=== PATIENT | female | born 1950 | race Caucasian/White ===

== ENCOUNTER 2017-02-28 16:56 | Inpatient (IN) | payer OTHER, MEDICARE ==
[~2017-02-28] VITALS: Ht 162.6 cm; Wt 63.2 kg
[2017-02-28] MEDS ORDERED: LEXA1TAB2 PO (17:11)
[2017-02-28] MEDS ORDERED: AMLO10TA2 PO (17:11)
[2017-02-28] MEDS ORDERED: ATOR1TAB21 PO (17:11)
[2017-02-28] MEDS ORDERED: MORPHINE 4 MG/ML 1ML SYRINGE As Ordered ONE (17:24)
[2017-02-28] MEDS ORDERED: MORPHINE 4 MG/ML 1ML SYRINGE IV ONE (17:30)
[2017-02-28] MEDS: NS 1,000 ML IV SCH (18:00)
[2017-02-28 18:10] LABS: BASO % 0.4 % (0.0-1.0); EOS # 0.2 K/mm3 (0.0-0.50); EOS % 2.3 % (0.0-3.0); LARGE UNSTAINED CELL # 0.2 K/mm3 (0.0-0.4); LARGE UNSTAINED CELL % 2.3 % (0.0-4.0); LYMPH # 2.1 K/mm3 (1.5-4.5); LYMPH % 31.8 % (24.0-44.0); MEAN CORPUSCULAR HEMOGLOBIN 30.9 pg (27.0-33.0); MEAN CORPUSCULAR VOLUME 90.9 fl (80.0-96.0); MONO # 0.3 K/mm3 (0.0-0.8); NEUTROPHILS # 3.8 K/mm3 (1.8-7.7); NEUTROPHILS % 58.4 % (36.0-66.0); PLATELET COUNT, AUTOMATED 193 k/mm3 (150-450); RED CELL DISTRIBUTION WIDTH 12.4 % (11.5-14.5); WHITE BLOOD COUNT 6.5 K/mm3 (4.0-10.0)
[2017-02-28 18:33] LABS: ANION GAP 9 MEQ/L (8-16); BLOOD UREA NITROGEN 15 MG/DL (7-18); CARBON DIOXIDE LEVEL 24 MEQ/L (21-32); CHLORIDE LEVEL 110 MEQ/L (98-107); CREATININE FOR GFR 0.74 MG/DL (0.55-1.02); GLOMERULAR FILTRATION RATE > 60.0 (>45); GLUCOSE, FASTING 105 MG/DL (80-110); POTASSIUM SERUM 3.7 MEQ/L (3.5-5.1); SODIUM LEVEL 143 MEQ/L (136-145)
[2017-02-28 18:43] LABS: INR 0.96
[2017-02-28] MEDS ORDERED: DIGOXIN INJ 0.5 MG/2 ML AMP (J1160) IV ONE (18:45)
[2017-02-28] MEDS ORDERED: ACET1TAB17 PO (18:48)
[2017-02-28] MEDS ORDERED: METOPROLOL 5 MG/5 ML VIAL IV SCH (19:00)
[2017-02-28] MEDS ORDERED: NS 1,000 ML IV ONE (19:45)
[2017-02-28] MEDS ORDERED: diltiaZEM 125 MG in NS 100 ML IV SCH (20:00)
--- NOTE | 2017-02-28 20:33 | CR.PDOC ---
[facility] Consultation Consultation DATE OF CONSULTATION: Feb 28, 2017 at 16:56 REFERRING PROVIDER: Hospitalist service ATTENDING PHYSICIAN: Dr. Lazaro Beckford- Orthopedic surgery REASON FOR CONSULTATION/CHIEF COMPLAINT: Left hip fracture. HISTORY OF PRESENT ILLNESS: Patient is a 66 yo female community ambulator with no assistive device who sustained a fall from 5 feet off a ladder when helping her prune a tree when she sustained a fall directly onto her left hip. Patient denies any antecedent chest pain, shortness of breath, palpitations, or other symptoms prior to her fall. In the ER, patient went into A-fib with RVR but currently is asymptomatic. Denies history of arrhythmia. No other complaints. Denies numbness, tingling, or burning to LLE. ALLERGIES: Please see below. HOME MEDICATIONS: Please see below. PAST MEDICAL HISTORY: 1. Hypertension. 2. Hyperlipidemia. 3. Anxiety PAST SURGICAL HISTORY: 1. tonsillectomy FAMILY HISTORY: non-contributory SOCIAL HISTORY: Marital status and/or living arrangements: , lived with in [place]. 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 CARDIOVASCULAR: + a fib in ER per HPI. No chest pain or palpitations. RESPIRATORY: NO cough, wheeze, or shortness of breath. GENITOURINARY: no frequency, urgency, or burning with urination. MUSCULOSKELETAL: L hip pain as above. No other extremity pain from fall. GASTROINTESTINAL: No nausea, vomiting, diarrhea. NEUROLOGICAL: No numbness, tingling, or burning sensations. PSYCHIATRIC: + anxiety history as above. PHYSICAL EXAMINATION: VITAL SIGNS: Please see below. GENERAL APPEARANCE: Well nourished female, no acute distress. HEENT: Normocephalic, atraumatic, normal dentition. RESPIRATORY: Non labored breathing. CARDIOVASCULAR: 2+ DP, PT pulses. Irregular rhythm as per HPI. EXTREMITIES: L hip with No open wounds or abrasions. Diffusely tender about left hip. No tenderness about knee, ankle, or foot. Able to flex/extend all toes LLE. Complete tertiary exam demonstrates full active BUE ROM, No cervical spine tenderness, No pain with R hip logroll. NEUROLOGICAL: Sensation and motor intact in BLE femoral, tibial, sural, saphenous, SPN, DPN distributions. LABORATORY DATA: Please see below. Rads: Plain radiographs of the left hip and pelvis demonstrate a minimally displaced L intertrochanteric femur fx ASSESSMENT: 66 y/o female with a L hip intertrochanteric femur fracture PLAN: 1. I discussed with the patient the risks, benefits, indications, and alternatives of operative versus nonoperative treatment and recommend closed versus open reduction and cephalomedullary nail fixation. Patient was counseled that given that she lives in [place] I will be her operating surgeon but she will likely have follow up arranged closer to home. If unable to follow up close to home, follow up with the [facility] will be arranged. Patient expressed understanding and informed consent was obtained for L hip CMN fixation. 2. Plan for surgery tomorrow AM pending medical optimization/risk stratification given new finding of A fib with RVR on hospital presentation. 3. NPO after midnight 4. Lovenox for DVT prophylaxis while in house 5. Full length femur films pending 6. Ancef 2G IV OCTOR Vital Signs/I&O Vital Signs Date Time Temp Pulse Resp B/P (MAP) Pulse Ox O2 Delivery O2 Flow Rate FiO2 02/28/17 20:10 106 97 02/28/17 19:55 116/87 (97) 02/28/17 18:06 18 02/28/17 18:00 Room Air 02/28/17 17:00 97.7 Laboratory Data Labs 24H Laboratory Tests 2 02/28/17 17:49: White Blood Count 6.5, Red Blood Count 4.15, Hemoglobin 12.8, Hematocrit 37.7, Mean Corpuscular Volume 90.9, Mean Corpuscular Hemoglobin 30.9, Mean Corpuscular Hemoglobin Concent 34.0, Red Cell Distribution Width 12.4, Platelet Count 193, Neutrophils (%) (Auto) 58.4, Lymphocytes (%) (Auto) 31.8, Monocytes ( %) (Auto) 5.0, Eosinophils (%) (Auto) 2.3, Basophils (%) (Auto) 0.4, Neutrophils # (Auto) 3.8, Lymphocytes # (Auto) 2.1, Monocytes # (Auto) 0.3, Eosinophils # (Auto) 0.2, Basophils # (Auto) 0.0, Large Unclassified Cells % 2.3 , Large Unclassified Cells # 0.2, Prothrombin Time 12.9, Prothromb Time International Ratio 0.96, Activated Partial Thromboplast Time 28.2, Anion Gap 9 , Glomerular Filtration Rate > 60.0, Blood Urea Nitrogen 15, Creatinine 0.74, Sodium Level 143, Potassium Level 3.7, Chloride Level 110H, Carbon Dioxide Level 24, Calcium Level 8.0L, Total Creatine Kinase 122, Creatine Kinase MB 1.8 , Creatine Kinase MB Relative Index 1.47, Troponin I 0.05, Thyroid Stimulating Hormone (TSH) 2.450 CBC/BMP Laboratory Tests 02/28/17 17:49 Red Blood Count 4.15, Mean Corpuscular Volume 90.9, Mean Corpuscular Hemoglobin 30.9, Mean Corpuscular Hemoglobin Concent 34.0, Red Cell Distribution Width 12.4 , Neutrophils (%) (Auto) 58.4, Lymphocytes (%) (Auto) 31.8, Monocytes (%) (Auto ) 5.0, Eosinophils (%) (Auto) 2.3, Basophils (%) (Auto) 0.4, Neutrophils # (Auto ) 3.8, Lymphocytes # (Auto) 2.1, Monocytes # (Auto) 0.3, Eosinophils # (Auto) 0.2, Basophils # (Auto) 0.0, Calcium Level 8.0 L, Total Creatine Kinase 122 Allergies Coded Allergies: Lisinopril (Unverified Adverse Reaction, Unknown, cough, 02/28/17) Home Medications Scheduled Amlodipine Besylate (Amlodipine Besylate) 10 Mg Tab, 10 MG PO DAILY, (Reported) Atorvastatin Calcium (Atorvastatin Calcium) 20 Mg Tab, 20 MG PO QHS, (Reported) Escitalopram Oxalate (Lexapro) 20 Mg Tab, 20 MG PO DAILY, (Reported) Scheduled PRN Acetaminophen (Acetaminophen) 325 Mg Tab, 650 MG PO Q6H PRN for PAIN, (Reported) FEI BECKFORD MD Feb 28, 2017 20:33
--- NOTE | 2017-02-28 21:07 | HPE ---
DATE OF ADMISSION: 02/28/2017 PRIMARY CARE PHYSICIAN: Dr. Aracelis Jerez, [place], [place] CHIEF COMPLAINT: Fall. HISTORY OF PRESENT ILLNESS: This is a 66-year-old female with a history of hypertension, hypercholesterolemia, anxiety who presents to the emergency room after a fall at home, sustaining a left hip fracture. Patient was on top of a ladder holding onto a branch when the son was cutting on the other side. She lost her balance and fell on her left side, unable to ambulate due to severe pain. X-rays in the emergency room (ER) showed left intertrochanteric fracture. Hospitalist service was called to admit. Of note, patient's heart rate on telemetry was found to be in atrial fibrillation with a ventricular rate of 143. She was given intravenous (IV) Cardizem bolus and placed on a Cardizem drip. Patient has otherwise been in her usual state of health. Denies any chest pain, pressure, tightness, shortness of breath, palpitations, lightheadedness, or syncope prior to the episode. Patient has been afebrile. No nausea, vomiting, abdominal pain, diarrhea, constipation, bright red blood per rectum, melena, or black, tarry stools. She has had previous history of palpitations in the past, which was evaluated by her tab cutter in [place]. Recent stress test was in 2014. According to the patient, previous EKGs showed no arrhythmias, with no prior episodes of near syncope or syncopal episodes from palpitations. Patient is usually very active, 15 minutes on a treadmill, and goes to the gym at least 3-4 times/week, and has had no issues with palpitations, lightheadedness, near syncope, or arrhythmias as outpatient.. PAST MEDICAL HISTORY: 1. Hypertension. 2. Hypercholesterolemia. 3. Anxiety. PAST SURGICAL HISTORY: None. ALLERGIES: LISINOPRIL, causing chronic dry cough. HOME MEDICATIONS: - acetaminophen 650 by mouth every 6 as needed for pain - amlodipine 10 mg daily - atorvastatin 20 mg at bedtime - Lexapro 20 mg daily SOCIAL HISTORY: Retired. Worked for the [employer]. Denies any current cigarette use. Previously smoked but quit 30 years ago. Occasional wine twice a week. Lives with her and son at home. FAMILY HISTORY: Mother alive, age 88, with hypertension and hypercholesterolemia. Father , age 84, with brain bleed, diabetes, hypertension. REVIEW OF SYSTEMS: Per history of present illness (HPI), a 12-point system otherwise negative. PHYSICAL EXAMINATION: Temperature 97.7, pulse 126, respiratory rate 18, blood pressure is 128/60, 193% on room air. GENERAL: Patient is awake, alert, oriented times three, answering questions appropriately. No facial asymmetry, icterus, jaundice. Pupils are equally round and reactive to light and accommodation. Extraocular muscles are intact. Normocephalic, atraumatic. Dry mucous membranes. Able to speak in full sentences. No thyromegaly, cervical lymphadenopathy, or jugular venous distention. LUNGS: Clear to auscultation. No wheezes, rales, or rhonchi. HEART: S1, S2, irregularly irregular. ABDOMEN: Soft, nontender, nondistended. Positive bowel sounds. EXTREMITIES: Left hip rotated. Unable to complete full exam due to severe pain. No pitting edema, cyanosis, or clubbing. Distal pulses: Dorsalis pedis, posterior tibialis are 2+. SKIN: Warm, dry. [place] in color. White count 6.5, hemoglobin 12, hematocrit 37, platelet count 193. Sodium 143, potassium 3.7, chloride 110, bicarbonate 24, BUN 15, creatinine 0.74 , glucose 105. Total CK 122, MB fraction 18, troponin 0.05. TSH of 2.45. Chest x-ray: No active disease. Hip x-ray: Intertrochanteric fracture of the proximal left femur. ASSESSMENT AND PLAN: This is a 66-year-old female with a history of hypertension , hypercholesterolemia, anxiety, history of palpitations, follows with a tab cutter in [place]. Had a recent stress test in 2014, which was unremarkable according to the patient. Presented to the emergency room after a mechanical fall at home while holding onto a branch and her son chopping the branch off the tree. She fell on her left side, sustaining an intertrochanteric fracture of proximal left femur. Presented to the emergency room and was found to have atrial fibrillation with rapid ventricular rate of 130-143. Hospitalist service was called for admission. Patient will be admitted as an outpatient for 2 midnights for the following issues. She will be admitted to the hospitalist service. Dr. Elliott Lynn will be assigned to her case. IMPRESSION: 1. Preoperative medical clearance. Patient is medically unstable to proceed to surgery tonight. Her atrial fibrillation is still uncontrolled; therefore, we will not clear her for surgery. We will need to optimize her with intravenous (IV) Cardizem for rate control prior to clearing her for surgery. I will advise Dr. Lynn to call Dr. Ryder in the morning, orthopedic surgeon sandblaster stone, in case the patient improves overnight. There are no signs of heart failure. Patient does not complain of any ischemic symptoms. Patient will be admitted to telemetry unit. Cycle cardiac markers and control the heart rate prior to clearing for surgery. Nothing by mouth after midnight. 2. Left hip intertrochanteric fracture. Patient is not cleared for surgery. Nothing by mouth after midnight in case patient's heart rate is improved and controlled overnight. Dr. Ryder has been consulted from orthopedic surgery for evaluation and repair. Pain control, bowel regimen will be provided. Supplemental oxygen if needed. 3. Deep vein thrombosis (DVT) prophylaxis with compression stockings. 4. Atrial fibrillation with rapid ventricular rate. At this time patient is uncontrolled; therefore will start on IV Cardizem 200 mg bolus. If patient responds to this, may transition over to oral Cardizem for continued rate control. Of note, patient may be given intravenous digoxin if blood pressure does not permit and heart rate is uncontrolled, up to three doses, 0.25 mg intravenously. 5. Hypertension, stable. Will resume Norvasc if systolic pressure is greater than 140. 6. Depression. Continue on Lexapro. 7. Hyperlipidemia, on atorvastatin. Patient will be signed out to Dr. Elliott Lynn at 199902/28/17 Addendum 02/28/17 19:45: Per TRUCK RENTAL MANAGER patient's systolic blood pressure dropped to 93 with no complaints of chest pain, pressure tightness or heaviness, lightheadedness, or dizziness when the cardizem 20 mg iv bolus was given with heart rate improving from 120- 130 to 70-80. Therefore, I have discontinued the IV cardizem gtt due to low blood pressure and controlled heart rate. I have signed out the patient to Nurse Practitioner sandblaster stone, Kelsi Recinos, that should the heart rate>120, patient may be given digoxin 0.25 mg iv up to 3 doses 6 hours apart is systolic pressure remains<120 or IV metoprolol 5 mg q6hrs for rate control if systolic pressure>120. MTDD
[2017-02-28 21:20] VITALS: BP 101/59
[2017-02-28] MEDS: ATORVASTATIN 20 MG TAB PO SCH (22:40)
[2017-02-28] MEDS: ACETAMINOPHEN TAB 650MG DOSE (2X325MG) PO PRN ×2 (22:54→23:24)
[2017-03-01] VITALS (11 sets, daily range): BP systolic 100–126; BP diastolic 49–65
[2017-03-01] MEDS: NS 1,000 ML IV SCH (04:58)
--- NOTE | 2017-03-01 06:07 | ECGEPIP ---
Stationary ECG Study [facility] - ED Test Date: 2017-02-28 Pat Name: SHAE PRICE Department: Room: - Gender: F Bee Raiser: NOEL : 1950 Requested By: Marcel Timmons Order Number: [id number] Reading MD: Marcel Landers Measurements Intervals [place] Rate: 125 P: AR: 0 QRS: 73 QRSD: 92 T: -71 QT: 270 QTc: 389 Interpretive Statements ATRIAL FIBRILLATION WITH RAPID VENTRICULAR RESPONSE ST DEVIATION AND MODERATE T-WAVE ABNORMALITY, CONSIDER INFERIOR ISCHEMIA NO PRIORS Electronically Signed On 03-01-2017 6:06:57 EDT by Marcel Landers
[2017-03-01] MEDS: ESCITALOPRAM OXALATE 10 MG TAB (LEXAPRO) PO SCH (08:14)
[2017-03-01] MEDS: amLODIPine 10 MG TAB PO SCH ×2 (08:14→09:00)
[2017-03-01 08:34] LABS: MEAN CORPUSCULAR HEMOGLOBIN 31.4 pg (27.0-33.0); MEAN CORPUSCULAR HGB CONC 33.9 g/dl (32.0-36.5); MEAN CORPUSCULAR VOLUME 92.6 fl (80.0-96.0); RED CELL DISTRIBUTION WIDTH 12.5 % (11.5-14.5); WHITE BLOOD COUNT 7.8 K/mm3 (4.0-10.0)
[2017-03-01 08:38] LABS: ANION GAP 9 MEQ/L (8-16); BLOOD UREA NITROGEN 12 MG/DL (7-18); CALCIUM LEVEL 7.6 MG/DL (8.8-10.2); CARBON DIOXIDE LEVEL 24 MEQ/L (21-32); CHLORIDE LEVEL 109 MEQ/L (98-107); CREATININE FOR GFR 0.37 MG/DL (0.55-1.02); GLOMERULAR FILTRATION RATE > 60.0 (>45); GLUCOSE, FASTING 109 MG/DL (80-110); MAGNESIUM LEVEL 1.8 MG/DL (1.8-2.4); POTASSIUM SERUM 3.8 MEQ/L (3.5-5.1); SODIUM LEVEL 142 MEQ/L (136-145)
[2017-03-01] MEDS ORDERED: ceFAZolin 2 GM/D5W 50 ML IV BAG (J0690) As Ordered ONE (10:02)
--- NOTE | 2017-03-01 10:18 | IPNPDOC ---
Date Seen The patient was seen on 03/01/17. Progress Note Ortho interval change note: Patient is a 66 y/o female with a L stable intertrochanteric femur fx who presented to the ER yesterday in A fib with RVR. This morning, patient in sinus rhythm, EKG normal, cardiac enzymes negative. Discussed case with hospitalist Dr. Lynn. Patient is medically optimized and we will proceed to OR this morning for L hip CMN fixation. Leonardo Beckford MD Orthopedic surgeon VS, I&O, 24H, [facility] Vital Signs/I&O Vital Signs Date Time Temp Pulse Resp B/P (MAP) Pulse Ox O2 Delivery O2 Flow Rate FiO2 03/01/17 09:00 96 Room Air 03/01/17 08:14 68 124/58 03/01/17 08:00 97.4 20 3.0 I&O- Last 24 Hours up to 6 AM 03/02/17 06:00 Intake Total 200 ml Output Total 0 ml Balance 200 ml Laboratory Data 24H LABS Laboratory Tests 2 02/28/17 17:49: White Blood Count 6.5, Red Blood Count 4.15, Hemoglobin 12.8, Hematocrit 37.7, Mean Corpuscular Volume 90.9, Mean Corpuscular Hemoglobin 30.9, Mean Corpuscular Hemoglobin Concent 34.0, Red Cell Distribution Width 12.4, Platelet Count 193, Neutrophils (%) (Auto) 58.4, Lymphocytes (%) (Auto) 31.8, Monocytes ( %) (Auto) 5.0, Eosinophils (%) (Auto) 2.3, Basophils (%) (Auto) 0.4, Neutrophils # (Auto) 3.8, Lymphocytes # (Auto) 2.1, Monocytes # (Auto) 0.3, Eosinophils # (Auto) 0.2, Basophils # (Auto) 0.0, Large Unclassified Cells % 2.3 , Large Unclassified Cells # 0.2, Prothrombin Time 12.9, Prothromb Time International Ratio 0.96, Activated Partial Thromboplast Time 28.2, Anion Gap 9 , Glomerular Filtration Rate > 60.0, Blood Urea Nitrogen 15, Creatinine 0.74, Sodium Level 143, Potassium Level 3.7, Chloride Level 110H, Carbon Dioxide Level 24, Calcium Level 8.0L, Total Creatine Kinase 122, Creatine Kinase MB 1.8 , Creatine Kinase MB Relative Index 1.47, Troponin I 0.05, Thyroid Stimulating Hormone (TSH) 2.450 03/01/17 07:55: Anion Gap 9, Glomerular Filtration Rate > 60.0, Blood Urea Nitrogen 12, Creatinine 0.37L, Sodium Level 142, Potassium Level 3.8, Chloride Level 109H, Carbon Dioxide Level 24, Calcium Level 7.6L, Total Creatine Kinase 80, Creatine Kinase MB 1.9, Creatine Kinase MB Relative Index 2.37, Troponin I 0.05, Magnesium Level 1.8 CBC/BMP Laboratory Tests 02/28/17 17:49 Red Blood Count 4.15, Mean Corpuscular Volume 90.9, Mean Corpuscular Hemoglobin 30.9, Mean Corpuscular Hemoglobin Concent 34.0, Red Cell Distribution Width 12.4 , Neutrophils (%) (Auto) 58.4, Lymphocytes (%) (Auto) 31.8, Monocytes (%) (Auto ) 5.0, Eosinophils (%) (Auto) 2.3, Basophils (%) (Auto) 0.4, Neutrophils # (Auto ) 3.8, Lymphocytes # (Auto) 2.1, Monocytes # (Auto) 0.3, Eosinophils # (Auto) 0.2, Basophils # (Auto) 0.0, Calcium Level 8.0 L, Total Creatine Kinase 122 03/01/17 07:55 Red Blood Count 3.83 L, Mean Corpuscular Volume 92.6, Mean Corpuscular Hemoglobin 31.4, Mean Corpuscular Hemoglobin Concent 33.9, Red Cell Distribution Width 12.5, Calcium Level 7.6 L, Total Creatine Kinase 80 FEI BECKFORD MD Mar 01, 2017 10:18
[2017-03-01] MEDS ORDERED: PROPOFOL 200 MG/20 ML VIAL As Ordered ONE (10:47)
[2017-03-01] MEDS ORDERED: KETAMINE HCL 200 MG/20 ML VIAL As Ordered ONE (10:47)
[2017-03-01] MEDS ORDERED: LIDOCAINE 2% INJ 100 MG/5 ML SDV (FOR ANES.) As Ordered ONE (10:47)
[2017-03-01] MEDS ORDERED: MIDAZOLAM INJ 2 MG/2 ML VIAL (J2250) As Ordered ONE (10:47)
[2017-03-01] MEDS ORDERED: PHENYLephrine HCL 500 MCG/5 ML (100MCG/ML) SYRINGE (J2370) As Ordered ONE (10:52)
[2017-03-01] MEDS ORDERED: ePHEDrine SULFATE 25 MG/5 ML(5MG/ML) SYRINGE As Ordered ONE (10:52)
[2017-03-01] MEDS ORDERED: HYDROmorphone HCL 1 MG/ML SYRINGE (J1170) IV PRN (12:00)
[2017-03-01] MEDS ORDERED: PERCOCET 5MG/325MG TAB PO PRN (12:00)
[2017-03-01] MEDS ORDERED: fentaNYL 100 MCG/2 ML INJECTION (J3010) IV PRN (12:00)
[2017-03-01] MEDS ORDERED: LR 1,000 ML IV SCH (12:00)
[2017-03-01] MEDS ORDERED: ONDANSETRON 4MG/2ML VIAL (J2405) IV PRN (12:00)
--- NOTE | 2017-03-01 13:20 | REP ---
CHEST, SINGLE VIEW: COMPARISON: 02/28/2017 There is no evidence of acute infiltrate. No pleural effusion is seen. The heart is normal in size. The mediastinal silhouette is unremarkable. The visualized osseous structures are intact. IMPRESSION: No acute pulmonary disease. Signed by Fredrick Cruz MD 03/01/2017 07:13 P
--- NOTE | 2017-03-01 13:20 | REP ---
PELVIS AND LEFT HIP: AP view of the pelvis and two views of the left hip are performed. There is a nondisplaced fracture of the intertrochanteric region of the proximal left femur. I see no other evidence of acute fracture or dislocation. Signed by Fredrick Cruz MD 03/01/2017 07:04 P
--- NOTE | 2017-03-01 13:20 | REP ---
CHEST, SINGLE VIEW: There is no evidence of acute infiltrate. No pleural effusion is seen. The heart is normal in size. The mediastinal silhouette is unremarkable. The visualized osseous structures are intact. IMPRESSION: No acute pulmonary disease. Signed by Fredrick Cruz MD 03/01/2017 07:04 P
--- NOTE | 2017-03-01 13:21 | REP ---
LEFT FEMUR: AP and lateral views of left femur are performed. Oblique intertrochanteric fracture is seen of the proximal left femur. There is very mild lateral displacement. No other acute fracture or dislocation is seen. Signed by Fredrick Cruz MD 03/01/2017 07:13 P
[2017-03-01] MEDS: traMADol 50 MG TAB PO PRN ×2 (13:37→20:57)
--- NOTE | 2017-03-01 13:58 | IPNPDOC ---
Text Note Date of Service The patient was seen on 03/01/17. NOTE Subjective: Patient denies any chest pain or palpitations even when she was in atrial fibrillation in the ED. She has been having extensive workup for palpitations outpt so there had paroxysmal atrial fibrillation and the stressful events of hip fracture caused her to go into rapid or jugular response. She does have good exercise tolerance and typically exercises for 60 minutes 3 times a week, 20 minutes on a stationary bike, 20 minutes on a treadmill, and further strength training. While exercising, patient denies any chest pain or palpitations or shortness of breath. Objective: Vitals: (see below) General: No acute distress, laying comfortably in bed. HEENT: Moist mucous membranes. Neck: No JVD or lymphadenopathy Cardiac: RRR, No murmurs Pulm: Clear to auscultation b/l. No wheezing, rhonchi Abd: NT/ND + BS Ext: No edema or cyanosis. Pain at the hip fracture site. Pain in the lower extremity with movement. Distal pulses intact. Labs (see below) Images: Assessment/Plan 1. Atrial fibrillation with rapid ventricular response- patient's is now back in normal sinus rhythm. Denied any chest pain or palpitations while she was in atrial fibrillation. Status post Cardizem drip. CHADSVASc 3 - patient will need long-term anticoagulation. The patient states she had a stress test 2 years ago that was negative. Her cardiac enzymes are negative. She did have ST changes in her in for as well as anterolateral leads while she was in RVR, however his EKG is improved now that she has a normal sinus rhythm. Have spoken to Dr. Beckman who believes that the patient is cleared from a cardiac perspective for her orthopedic surgery. He also recommends a chronic anticoagulation. 2. Hypertension- controlled 3. Hyperlipidemia- continue statin 4. History of anxiety Patient is medically optimized for her orthopedic surgery. This is an intermediate risk surgery. RCRI 0. DVT prophy: Patient will likely be placed on Coumadin by orthopedics for DVT prophylaxis; after the patient completes this, she will need to continue chronic anticoagulation for atrial fibrillation. VS,Fishbone, I+O VS, Fishbone, I+O Laboratory Tests 02/28/17 17:49 Red Blood Count 4.15, Mean Corpuscular Volume 90.9, Mean Corpuscular Hemoglobin 30.9, Mean Corpuscular Hemoglobin Concent 34.0, Red Cell Distribution Width 12.4 , Neutrophils (%) (Auto) 58.4, Lymphocytes (%) (Auto) 31.8, Monocytes (%) (Auto ) 5.0, Eosinophils (%) (Auto) 2.3, Basophils (%) (Auto) 0.4, Neutrophils # (Auto ) 3.8, Lymphocytes # (Auto) 2.1, Monocytes # (Auto) 0.3, Eosinophils # (Auto) 0.2, Basophils # (Auto) 0.0, Calcium Level 8.0 L, Total Creatine Kinase 122 03/01/17 07:55 Red Blood Count 3.83 L, Mean Corpuscular Volume 92.6, Mean Corpuscular Hemoglobin 31.4, Mean Corpuscular Hemoglobin Concent 33.9, Red Cell Distribution Width 12.5, Calcium Level 7.6 L, Total Creatine Kinase 80 Vital Signs Date Time Temp Pulse Resp B/P (MAP) Pulse Ox O2 Delivery O2 Flow Rate FiO2 03/01/17 13:37 18 Room Air 03/01/17 12:30 97.2 71 126/63 (84) 98 03/01/17 11:22 4 I&O- Last 24 Hours up to 6 AM 03/02/17 06:00 Intake Total 995 ml Output Total 675 ml Balance 320 ml ESPERANZA MOURA MD Mar 01, 2017 13:58
--- NOTE | 2017-03-01 15:06 | ECHO ---
DATE OF PROCEDURE: 03/01/2017 DATE OF : 1950 AGE: 66 GENDER: Female. HEIGHT: 64 inches WEIGHT: 138 pounds. BODY SURFACE AREA: 1.68 meters squared. INPATIENT: Progressive care unit (PCU). REFERRING PHYSICIAN: Dr. Elliott Lynn INDICATION: Paroxysmal atrial fibrillation with rapid ventricular response. Abnormal EKG. MEASUREMENTS: 2D measurements: RV: 3.2 cm LV: 4.5 cm Septum: 1.0 cm Posterior wall: 0.9 cm Aortic root: 3.0 cm LA: 3.8 cm LVEF: 65%. Doppler measurements: AV: 1.8 meters per second LVOT: 1.1 meters per second LVOT diameter: 2.0 cm MV-E: 106, A: 86, E/A ratio: 1.2 Early mitral deceleration time: 204 milliseconds E prime: 8, A prime: 16, E/E prime ratio 13.2 Estimated mean pulmonary artery wedge pressure: 14.4 mmHg PV: 0.9 meters per second Pulmonary artery acceleration time: 120 milliseconds RVSP: 31 mmHg IVC: 1.4 cm COMMENTS: Currently in sinus rhythm (converted last evening following IV digoxin and metoprolol). No intraventricular conduction disturbance. Left atrium was upper limits of normal in size but normal left ventricular size. Right heart chamber sizes were normal. LV wall thickness was normal. On real-time imaging from the parasternal and projections, wall motion was symmetrical and hyperkinetic. Mildly thickened mitral annulus but normal leaflet thickness and excursion with no posterior systolic buckling. Three equal size aortic cusps with mildly thickened cusp edges but adequate cusp separation. Normal aortic root size. No apparent intracardiac mass or pericardial effusion. Color flow Doppler study taken from the parasternal and apical projection showed very mild posteriorly directed mitral insufficiency with trace tricuspid but no aortic insufficiency. Guided continuous wave Doppler of her aortic valve showed a normal peak systolic velocity against LV outflow tract obstruction. Pulsed and continuous wave Doppler of her LV inflow tract taken from the apical four-chamber projection showed normal diastolic filling velocities against mitral stenosis. Her filling pattern was normal as was her estimated mean left atrial pressure using pulsed and tissue Doppler of her mitral annulus. Pulsed and continuous wave Doppler of her pulmonary trunk showed a normal peak systolic velocity against RV outflow tract obstruction. Her pulmonary acceleration time was lower limits of normal against an elevated pulmonary vascular resistance. Guided continuous wave Doppler of her tricuspid valve allowed our estimation of her right ventricular systolic pressure (upper limits of normal to borderline increased). Her inferior vena cava was of normal size with normal respiratory collapse against an elevated central venous pressure. CONCLUSION: Normal left ventricular size, wall thickness and hyperkinetic wall motion. Borderline left atrial size with currently normal Doppler assessment of LV diastolic function and estimated mean left atrial pressure. Normal right heart chamber sizes and contraction with Doppler evidence of pulmonary arterial pressure upper limits of normal to borderline increased. Normal inferior vena cava (IVC) size and collapse against an elevated central venous pressure. Mild aortic valvular sclerosis and mitral annular calcification without hemodynamically significant valvular abnormality. Copy To: Dr. Jordan, [facility]
[2017-03-01] MEDS ORDERED: SLF 3 ML SYR IV PRN (15:30)
[2017-03-01] MEDS: ACETAMINOPHEN TAB 650MG DOSE (2X325MG) PO PRN (16:12)
--- NOTE | 2017-03-01 17:36 | ECGEPIP ---
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
[2017-03-01] MEDS: ATORVASTATIN 20 MG TAB PO SCH (20:56)
[2017-03-01] MEDS: SLF 3 ML SYR IV SCH (20:56)
[2017-03-01] MEDS ORDERED: tiZANidine 4 MG TAB PO ONE (21:30)
[2017-03-02] VITALS: BP 100/60
[2017-03-02 04:00] VITALS: BP 109/59
[2017-03-02] MEDS: SLF 3 ML SYR IV SCH (04:20)
[2017-03-02] MEDS: traMADol 50 MG TAB PO PRN (04:22)
--- NOTE | 2017-03-02 07:04 | REP ---
LEFT HIP: Two views of the left hip are performed. Metallic internal fixation is seen in the proximal left femur for an intertrochanteric fracture. Structures are well aligned. Skin sun are seen laterally. Signed by Fredrick Cruz MD 03/02/2017 05:26 P
--- NOTE | 2017-03-02 07:10 | REP ---
C-ARM VIEWS LEFT HIP: Multiple C-arm views of the left hip are performed during placement of metallic internal fixation for an intertrochanteric fracture of the proximal left femur. The structures are well aligned. 1 minute 10 seconds fluoroscopy time utilized. Signed by Fredrick Cruz MD 03/02/2017 05:26 P
[2017-03-02 08:00] VITALS: BP 108/59
[2017-03-02 08:35] LABS: MEAN CORPUSCULAR HEMOGLOBIN 31.5 pg (27.0-33.0); MEAN CORPUSCULAR HGB CONC 34.6 g/dl (32.0-36.5); RED CELL DISTRIBUTION WIDTH 12.4 % (11.5-14.5); WHITE BLOOD COUNT 7.4 K/mm3 (4.0-10.0)
[2017-03-02 08:43] LABS: ANION GAP 8 MEQ/L (8-16); BLOOD UREA NITROGEN 9 MG/DL (7-18); CALCIUM LEVEL 8.2 MG/DL (8.8-10.2); CARBON DIOXIDE LEVEL 25 MEQ/L (21-32); CHLORIDE LEVEL 103 MEQ/L (98-107); CREATININE FOR GFR 0.48 MG/DL (0.55-1.02); GLOMERULAR FILTRATION RATE > 60.0 (>45); GLUCOSE, FASTING 103 MG/DL (80-110); MAGNESIUM LEVEL 1.8 MG/DL (1.8-2.4); POTASSIUM SERUM 3.2 MEQ/L (3.5-5.1); SODIUM LEVEL 136 MEQ/L (136-145)
[2017-03-02] MEDS: MOM 30ML SUSPENSION UDC PO SCH (09:00)
[2017-03-02] MEDS ORDERED: ENOXAPARIN 40 MG/0.4 ML SYRINGE (J1650) SC SCH (09:00)
[2017-03-02] MEDS: SENOKOT S TAB PO SCH ×2 (09:00→21:00)
[2017-03-02] MEDS: amLODIPine 10 MG TAB PO SCH (09:00)
[2017-03-02] MEDS ORDERED: INFLUENZA VIRUS VACCINE HIGH DOSE 0.5 ML SYRINGE (90662) IM ONE (09:00)
--- NOTE | 2017-03-02 09:06 | RO ---
DATE OF PROCEDURE: 03/01/2017 PREOPERATIVE DIAGNOSIS: Left hip intertrochanteric femur fracture. POSTOPERATIVE DIAGNOSIS: Left hip intertrochanteric femur fracture. PROCEDURE PERFORMED: Left proximal femur cephalomedullary nail fixation. SURGEON: Lazaro Ryder MD GLASS MELT OPERATOR: YANI Daley ANESTHESIA PROVIDER: Dr. Cook ANESTHESIA GIVEN: Spinal single shot anesthesia. IMPLANTS USED: Synthes short TFN advanced, 11 mm x 170 mm nail with 100 mm helical blade and 36 mm x 5 mm interlocking screw. ESTIMATED BLOOD LOSS: 50 mL. MATERIALS SENT TO LAB: None. ANTIBIOTICS: 2 grams Ancef given within 1 hour of incision. COMPLICATIONS: None. INDICATIONS FOR PROCEDURE: Reva Escobedo is a 66-year-old female community ambulator with no assistive devices, who sustained a fall from 5 feet off of a ladder yesterday resulting in a minimally displaced intertrochanteric femur fracture. The patient presented to the emergency room in atrial fibrillation with rapid ventricular response. She was admitted to the hospitalist service on telemetry for optimization. She returned to sinus rhythm on the morning after the injury. I discussed with the patient and the hospitalist the risks, benefits, indications and alternatives of operative versus nonoperative treatment and recommended open versus closed reduction with cephalomedullary nail fixation for her left proximal femur fracture. She was medically optimized, returned to sinus rhythm, and required no further cardiac workup per the hospitalist service and was cleared for surgery by anesthesia. I counseled the patient that I will be her operating surgeon, but her followup care will likely be arranged in [place], closer to her home. The patient expressed understanding with this arrangement, providing informed consent for left hip closed versus open reduction and cephalomedullary nail fixation. INTRAOPERATIVE FINDINGS: The patient had a stable left intertrochanteric femur fracture that was stable after fixation. DESCRIPTION OF PROCEDURE: The patient was positively identified in the preoperative holding area where the surgical site was marked. She was then brought to the operating room where she was given single shot spinal anesthesia. She was then positioned supine on the fracture table with all bony prominences appropriately padded. Sequential compression device (SCD) was placed on the nonoperative extremity for deep vein thrombosis (DVT) prophylaxis. I obtained sub acute care nurse fluoroscopic images to obtain the reduction with traction, adduction and mild internal rotation. She was then prepped and draped in the usual sterile fashion and a final time out was performed. I made a 3 cm incision 3 fingerbreadths proximal to the tip of the greater trochanter. I dissected through skin and subcutaneous tissue and introduced the 3.2 mm guidewire, centered in the tip of the greater trochanter on AP and lateral fluoroscopic imaging. It was advanced to the level of the lesser trochanter. The 16 mm opening reamer was advanced to the level of the lesser trochanter. After the opening reamer was removed, a ball tip guidewire was placed down the shaft of the canal for ease of nail placement. The 130 degree short TFN advanced nail was placed into the proximal femur. Depth was confirmed using fluoroscopic imaging. An additional 2 cm incision was made at the lateral aspect of the femur for blade placement. The 3.2 mm guidepin for placement of the helical blade was centered on AP and lateral fluoroscopic imaging. I then measured the length to 100 mm confirming no intra-articular penetration of the guidepin. The reamer for the helical blade was then reamed to the depth of 100 mm. The helical blade was then advanced in a standard fashion, confirmed on AP and lateral fluoroscopic imaging that there is no intra-articular penetration of the helical blade, and the reduction was maintained. I then placed a 5 mm x 36 mm interlocking screw in the distal portion of the nail in a standard fashion. After this was completed, final fluoroscopic images were taken. The wound was then thoroughly irrigated with normal saline and closed in layers with #2-0 vicryl for the subcutaneous layer and sun for the skin. Sterile dressings were applied. This ended the procedure. I was present and scrubbed in for all critical portions of the case. POSTOPERATIVE PLAN: Patient will return to the hospital floor. She will be weightbearing as tolerated. She will undergo physical therapy for ambulation with a walker. She will be given Lovenox for six weeks for deep vein thrombosis (DVT) prophylaxis and she will be discharged when criteria met. Follow up will be arranged locally in the event that patient is unable to obtain follow up care closer to home. ANTONINA
[2017-03-02] MEDS: ESCITALOPRAM OXALATE 10 MG TAB (LEXAPRO) PO SCH (09:19)
[2017-03-02] MEDS: ACETAMINOPHEN TAB 650MG DOSE (2X325MG) PO PRN ×2 (09:44→19:15)
[2017-03-02] MEDS: MIRALAX *UNIT DOSE* 17GM PACKET PO SCH (10:18)
[2017-03-02] MEDS ORDERED: POTASSIUM CHLORIDE 10 MEQ SR TABLET PO ONE (11:15)
[2017-03-02 11:39] VITALS: BP 109/56
[2017-03-02 16:00] VITALS: BP 105/52
--- NOTE | 2017-03-02 16:04 | IPNPDOC ---
Text Note Date of Service The patient was seen on 03/02/17. NOTE Subjective: Pt denies CP/SOB/palpitations. Objective: Vitals: (see below) General: No acute distress, laying comfortably in bed. HEENT: Moist mucous membranes. Neck: No JVD or lymphadenopathy Cardiac: RRR, No murmurs Pulm: Clear to auscultation b/l. No wheezing, rhonchi Abd: NT/ND + BS Ext: No edema or cyanosis. Pain at the hip fracture site. Pain in the lower extremity with movement. Distal pulses intact. Labs (see below) Images: Echo 03/01/17 CONCLUSION: Normal left ventricular size, wall thickness and hyperkinetic wall motion. Borderline left atrial size with currently normal Doppler assessment of LV diastolic function and estimated mean left atrial pressure. Normal right heart chamber sizes and contraction with Doppler evidence of pulmonary arterial pressure upper limits of normal to borderline increased. Normal inferior vena cava (IVC) size and collapse against an elevated central venous pressure. Mild aortic valvular sclerosis and mitral annular calcification without hemodynamically significant valvular abnormality. Assessment/Plan 1. Atrial fibrillation with rapid ventricular response- patient's is now back in normal sinus rhythm. Denied any chest pain or palpitations while she was in atrial fibrillation. Status post Cardizem ip. CHADSVASc 3 - patient will need long-term anticoagulation. The patient states she had a stress test 2 years ago that was negative. Her cardiac enzymes are negative. She did have ST changes in her in for as well as anterolateral leads while she was in RVR, however his EKG is improved now that she has a normal sinus rhythm. Have spoken to Dr. Beckman who believes that the patient is cleared from a cardiac perspective for her orthopedic surgery. He also recommends a chronic anticoagulation. Echocardiogram (see above). Spoke with Ortho - given that the patient will need full anticoagulation for AF, and DVT prophy post hip repair, will start pt on Eliquis 5mg BID. 2. POD 1 s/p hip arthroplasty - management per ortho 3. Hypertension- controlled 4. Hyperlipidemia- continue statin 5. History of anxiety DVT prophy: Eliquis VS,Fishbone, I+O VS, Fishbone, I+O Laboratory Tests 03/02/17 08:14 Red Blood Count 3.54 L, Mean Corpuscular Volume 91.0, Mean Corpuscular Hemoglobin 31.5, Mean Corpuscular Hemoglobin Concent 34.6, Red Cell Distribution Width 12.4, Calcium Level 8.2 L Vital Signs Date Time Temp Pulse Resp B/P (MAP) Pulse Ox O2 Delivery O2 Flow Rate FiO2 03/02/17 11:39 99.2 78 18 109/56 (73) 93 Room Air 03/01/17 11:22 4 I&O- Last 24 Hours up to 6 AM 03/03/17 06:00 Intake Total 1050 ml Output Total 1850 ml Balance -800 ml ESPERANZA MOURA MD Mar 02, 2017 16:04
[2017-03-02 20:00] VITALS: BP 126/58
[2017-03-02] MEDS: ATORVASTATIN 20 MG TAB PO SCH (21:05)
[2017-03-03 00:55] VITALS: BP 105/63
--- NOTE | 2017-03-03 03:00 | REP ---
Clinical: Postoperative evaluation. Technique: AP and frog lateral views of the left hip. Findings: The patient is status post open reduction and fixation for intertrochanteric fracture. Satisfactory alignment and orthopedic hardware positioning is appreciated. Overlying postsurgical changes noted. Impression: Status post open reduction and fixation. Signed by Ko Mcclain MD 03/03/2017 02:51 A
[2017-03-03 03:21] VITALS: BP 103/55
[2017-03-03 06:48] LABS: MEAN CORPUSCULAR HGB CONC 33.3 g/dl (32.0-36.5); MEAN CORPUSCULAR VOLUME 89.9 fl (80.0-96.0); RED CELL DISTRIBUTION WIDTH 12.9 % (11.5-14.5); WHITE BLOOD COUNT 8.6 10^3/uL (4.0-10.0)
[2017-03-03 07:13] LABS: ANION GAP 7 MEQ/L (8-16); BLOOD UREA NITROGEN 10 MG/DL (7-18); CALCIUM LEVEL 8.4 MG/DL (8.8-10.2); CARBON DIOXIDE LEVEL 26 MEQ/L (21-32); CHLORIDE LEVEL 109 MEQ/L (98-107); CREATININE FOR GFR 0.47 MG/DL (0.55-1.02); GLOMERULAR FILTRATION RATE > 60.0 (>45); GLUCOSE, FASTING 104 MG/DL (80-110); MAGNESIUM LEVEL 1.9 MG/DL (1.8-2.4); POTASSIUM SERUM 3.6 MEQ/L (3.5-5.1); SODIUM LEVEL 142 MEQ/L (136-145)
[2017-03-03] MEDS: MOM 30ML SUSPENSION UDC PO SCH (09:00)
[2017-03-03] MEDS: SENOKOT S TAB PO SCH ×3 (09:21→20:35)
[2017-03-03] MEDS: APIXABAN 5 MG TAB (ELIQUIS) PO SCH ×2 (09:21→20:31)
[2017-03-03] MEDS: MIRALAX *UNIT DOSE* 17GM PACKET PO SCH (09:21)
[2017-03-03] MEDS: ESCITALOPRAM OXALATE 10 MG TAB (LEXAPRO) PO SCH (09:21)
[2017-03-03] MEDS: ACETAMINOPHEN TAB 650MG DOSE (2X325MG) PO PRN ×2 (09:34→18:50)
[2017-03-03 14:00] VITALS: BP 117/66
--- NOTE | 2017-03-03 15:54 | IPNPDOC ---
Text Note Date of Service The patient was seen on 03/03/17. NOTE Subjective: Patient is a 66 year old female with a PMHx of HTN, DLP and Anxiety who presented to the ER after she had fallen at home. In the ER she was found to have a Left hip fracture. She was also noted to be in a.fib with RVR. She was given an IV dose of Cardizem and the subsequently started on a drip. Case was discussed with Dr. Beckman who provided clearance for surgery. Patient was seen and examined at the bedside. Currently she notes that she is tolerating the left hip pain and is working with physical therapy. Objective: Vitals (See below) General: Lying in bed, no acute distress, comfortable, AAOx3 HEENT: NC, AT CVS: RRR, +S1S2 Lungs: Fair air entry b/l, -w/r/r Abdomen: Soft, ND, NT Extremities: - Edema, - Calf tenderness Assessment and plan: Paroxysmal atrial fibrillation - New onset; CHADSVASc: 3 - Currently in NSR, No CP, SOB or palpitations - Troponin x3 negative; - Episode of atrial fibrillation at night, was given dose of Cardizem CD 120 at night - Will c/w Cardizem CD daily - c/w Eliquis 5 BID Left hip fracture - s/p ORIF (03/01/17) - Dr. Ryder following - Managing pain control - Discussed anticoagulation for DVT prophylaxis and atrial fibrillation; started Eliquis on 03/02/17 HTN - well controlled - will Stop amlodipine and start Cardizem CD DLP - c/w Atorvastatin Anxiety - c/w Escitalopram DVT prophylaxis - on full anticoagulation with Eliquis Disposition: - Awaiting clearance by PT VS,Jayjay, I+O VS, Jayjay, I+O Laboratory Tests 03/03/17 06:30 Red Blood Count 3.77 L, Mean Corpuscular Volume 89.9, Mean Corpuscular Hemoglobin 30.0, Mean Corpuscular Hemoglobin Concent 33.3, Red Cell Distribution Width 12.9, Calcium Level 8.4 L Vital Signs Date Time Temp Pulse Resp B/P (MAP) Pulse Ox O2 Delivery O2 Flow Rate FiO2 03/03/17 03:21 98.8 91 16 103/55 (71) 95 Room Air 03/01/17 11:22 4 TAVIA BETTENCOURT MD Mar 03, 2017 15:54
[2017-03-03] MEDS: SLF 3 ML SYR IV SCH (18:53)
[2017-03-03 20:30] VITALS: BP 122/64
[2017-03-03] MEDS: ATORVASTATIN 20 MG TAB PO SCH (20:32)
[2017-03-03] MEDS: traMADol 50 MG TAB PO PRN (20:32)
--- NOTE | 2017-03-03 21:04 | ECGEPIP ---
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
[2017-03-03 22:00] VITALS: BP 112/60
[2017-03-04 06:00] VITALS: BP 118/62
[2017-03-04 06:25] LABS: MEAN CORPUSCULAR HEMOGLOBIN 30.3 pg (27.0-33.0); MEAN CORPUSCULAR HGB CONC 33.2 g/dl (32.0-36.5); MEAN CORPUSCULAR VOLUME 91.1 fl (80.0-96.0); WHITE BLOOD COUNT 7.8 10^3/uL (4.0-10.0)
[2017-03-04 06:52] LABS: ANION GAP 5 MEQ/L (8-16); BLOOD UREA NITROGEN 11 MG/DL (7-18); CALCIUM LEVEL 8.5 MG/DL (8.8-10.2); CARBON DIOXIDE LEVEL 29 MEQ/L (21-32); CHLORIDE LEVEL 107 MEQ/L (98-107); CREATININE FOR GFR 0.48 MG/DL (0.55-1.02); GLOMERULAR FILTRATION RATE > 60.0 (>45); GLUCOSE, FASTING 104 MG/DL (80-110); MAGNESIUM LEVEL 1.9 MG/DL (1.8-2.4); POTASSIUM SERUM 3.6 MEQ/L (3.5-5.1); SODIUM LEVEL 141 MEQ/L (136-145)
[2017-03-04] MEDS ORDERED: CARD120C3 PO (08:00)
[2017-03-04] MEDS ORDERED: ELIQ5TAB PO (08:00)
[2017-03-04] MEDS: MOM 30ML SUSPENSION UDC PO SCH (09:00)
[2017-03-04] MEDS ORDERED: TRAM50TA2 PO (09:04)
[2017-03-04] MEDS: MIRALAX *UNIT DOSE* 17GM PACKET PO SCH (10:34)
[2017-03-04] MEDS: ESCITALOPRAM OXALATE 10 MG TAB (LEXAPRO) PO SCH (10:35)
[2017-03-04] MEDS: SENOKOT S TAB PO SCH (10:36)
[2017-03-04] MEDS: APIXABAN 5 MG TAB (ELIQUIS) PO SCH (10:36)
--- NOTE | 2017-03-04 11:47 | IPNPDOC ---
Text Note Date of Service The patient was seen on 03/04/17. NOTE Subjective: Patient is a 66 year old female with a PMHx of HTN, DLP and Anxiety who presented to the ER after she had fallen at home. In the ER she was found to have a Left hip fracture. She was also noted to be in a.fib with RVR. She was given an IV dose of Cardizem and the subsequently started on a drip. Case was discussed with Dr. Beckman who provided clearance for surgery. Patient was seen and examined at the bedside. She notes that she has not had any issues overnight. Reports that she is continuing to work with physical therapy. Objective: Vitals (See below) General: Lying in bed, no acute distress, comfortable, AAOx3 HEENT: NC, AT CVS: RRR, +S1S2 Lungs: Fair air entry b/l, -w/r/r Abdomen: Soft, ND, NT Extremities: - Edema, - Calf tenderness Assessment and plan: Paroxysmal atrial fibrillation - New onset; CHADSVASc: 3 - Currently in NSR, No CP, SOB or palpitations - Troponin x3 negative; - s/p Episode of atrial fibrillation at 03/03 AM - c/w Cardizem CD 120 QD - c/w Eliquis 5 BID Left hip fracture - s/p ORIF (03/01/17) - Dr. Ryder following - Managing pain control - Discussed anticoagulation for DVT prophylaxis and atrial fibrillation; started Eliquis on 03/02/17 HTN - well controlled - s/p Amlodipine - c/w Cardizem CD DLP - c/w Atorvastatin Anxiety - c/w Escitalopram DVT prophylaxis - on full anticoagulation with Eliquis Disposition: - Awaiting clearance by PT VS,Jayjay, I+O VS, Jayjay, I+O Laboratory Tests 03/04/17 05:54 Red Blood Count 3.47 L, Mean Corpuscular Volume 91.1, Mean Corpuscular Hemoglobin 30.3, Mean Corpuscular Hemoglobin Concent 33.2, Red Cell Distribution Width 13.0, Calcium Level 8.5 L Vital Signs Date Time Temp Pulse Resp B/P (MAP) Pulse Ox O2 Delivery O2 Flow Rate FiO2 03/04/17 11:34 Room Air 03/04/17 06:00 98.6 74 18 118/62 (80) 96 9/24/17 11:22 4 I&O- Last 24 Hours up to 6 AM 03/05/17 05:59 Intake Total 480 ml Balance 480 ml TAVIA BETTENCOURT MD Mar 04, 2017 11:47
--- NOTE | 2017-03-04 14:35 | DSES ---
DATE OF ADMISSION: 02/28/2017 DATE OF DISCHARGE: 03/04/2017 ATTENDING PHYSICIANS: Aline Norwood MD, and Elliott Lynn MD. PRIMARY CARE PHYSICIAN: Unknown. REFERRING PHYSICIAN: None. CONSULTING PHYSICIAN: Lazaro Ryder MD CONDITION ON DISCHARGE: Stable. FINAL DIAGNOSES: Paroxysmal atrial fibrillation and left hip fracture status post open reduction, internal fixation. PROCEDURES: Left proximal femur cephalomedullary nail fixation by Dr. Ryder done on 03/01/2017. HISTORY OF PRESENT ILLNESS: Patient is a 66-year-old female with a past medical history of hypertension, dyslipidemia, anxiety, who presented to the emergency room (ER) after she had fallen at home. In the emergency room, she was found to have a left hip fracture. She was also noted to be in atrial fibrillation (AFib) with rapid ventricular response (RVR). She was given an intravenous (IV) dose of Cardizem and then subsequently started on Cardizem drip. Case was discussed with Dr. Beckman, who provided surgical clearance. HOSPITAL COURSE: 1. Paroxysmal atrial fibrillation, new onset. Congestive heart failure, hypertension, age, diabetes, stroke, vascular disease, age, sex category (CHADS-VASc) of 3, currently in normal sinus rhythm. Denied any chest pain, shortness of breath, or palpitations. Troponin times three were negative. She had episode of atrial fibrillation on 03/03/2017 morning. She since has been started on Cardizem sustained release 120 mg every day as well as Eliquis 5 mg twice a day. 2. Left hip fracture, status post open reduction, internal fixation on 03/01/2017. Dr. Ryder has been following, and he has been managing pain control. Discussed anticoagulation for deep venous thrombosis (DVT) prophylaxis and atrial fibrillation with surgical team, and we have started Eliquis on 03/02/2017. 3. Hypertension. Blood pressure remains well controlled. Her amlodipine has been discontinued, and she has been continued with Cardizem sustained release. 4. Dyslipidemia. Continue with atorvastatin. 5. Anxiety. Continue with escitalopram. 6. Deep venous thrombosis (DVT) prophylaxis. She is on full anticoagulation with Eliquis. DISCHARGE MEDICATION: Patient has been discharged home with the following medication list: - Eliquis 5 mg by mouth twice a day - Cardizem sustained release 120 mg by mouth in the evening - tramadol 1-2 tablets by mouth every 4 hours as needed moderate pain - Tylenol 650 mg by mouth every 6 hours as needed pain - atorvastatin 20 mg by mouth nightly - escitalopram 20 mg by mouth daily Stopped medications include: - amlodipine 10 mg by mouth daily DISCHARGE INSTRUCTIONS: Patient has been advised to followup with her primary care provider and jet inspector within the next 7 days. She has been advised to remain compliant with treatment and medication and return to the emergency room if she experiences any problems. Patient was advised to followup with her jet inspector, as well. TIME SPENT ON DISCHARGE: Greater than 35 minutes. Edited: juan 03/07/2017 1030
== END 2017-03-04 14:00 | disposition home or self-care (01) | DRG 482 ==
LOC: M ED 16:56 → M ED INP 18:38 → M PCU 21:04 → M MS5PR 03-02 22:53
PROVIDERS: ADMIT General Practice; ATTEND Internal Medicine
PROC: 0QS706Z Reposition Left Upper Femur with Intramedullary Internal Fixation Device, Open Approach (ICD-10-PCS; principal; 2017-03-01 09:15)
DX: S72.142A Displaced intertrochanteric fracture of left femur, initial encounter for closed fracture (principal); I10 Essential (primary) hypertension; I48.0 Paroxysmal atrial fibrillation; E78.00 Pure hypercholesterolemia, unspecified; E78.5 Hyperlipidemia, unspecified; F41.9 Anxiety disorder, unspecified; W11.XXXA Fall on and from ladder, initial encounter; Y93.H2 Activity, gardening and landscaping; Y92.017 Garden or yard in single-family (private) house as the place of occurrence of the external cause; Y99.9 Unspecified external cause status; Z88.8 Allergy status to other drugs, medicaments and biological substances; Z79.899 Other long term (current) drug therapy; Z87.891 Personal history of nicotine dependence